=== PATIENT | female | born 1980 | race Caucasian/White ===

== ENCOUNTER 2020-05-27 02:03 | Inpatient (IN) | payer OTHER, SELFPAY ==
[2020-05-27] VITALS (25 sets, daily range): BP systolic 116–138; BP diastolic 79–97; PULSE 91–115; RESP 13–25; TEMP 36.2–36.9; O2SAT 99–100; BMI 27.9
--- NOTE | ~2020-05-27 | XR_ITS ---
EXAMINATION: XR knee LT 2V, XR knee RT 2V DATE: 05/28/2020 12:55 INDICATION: Bilateral knee pain post fall onto knees. TECHNIQUE: 1. Anteroposterior and flexed are stable lateral views of the left knee were obtained. 2. Anteroposterior and flexed are stable lateral views of the right knee were obtained. COMPARISON: None. FINDINGS: Normal alignment at both knees. No fracture. Joint spaces appear normal at both knees. Small right kn ee joint effusion without layering lipohemarthrosis. No left knee joint effusion. Soft tissues are ot herwise unremarkable. IMPRESSION: 1. No osseous abnormality at either knee. 2. Small right knee joint effusion. Reviewed, dictated and finalized at location A. IMPRESSION: 1. No osseous abnormality at either knee. 2. Small right knee joint effusion.
--- NOTE | ~2020-05-27 | US_ITS ---
EXAMINATION: US right upper quadrant EXAM DATE: 05/27/2020 13:50 INDICATION: Abnormal labs. TECHNIQUE: Multiple grayscale and Doppler images of the abdomen right upper quadrant were obtained (b y a technologist who performed the scan) and subsequently reviewed. There is no prior study for sade sevilla. FINDINGS: The pancreatic head and body are normal in appearance. The pancreatic tail is not visualized. There is echogenic liver parenchyma with poor penetration, hepatic steatosis. There are no focal liver le sions identified. There is no evidence of intrahepatic biliary duct dilation. Portal venous flow w as seen in the hepatopedal, normal direction and has normal Doppler waveform. No right-sided hydrone phrosis. Common bile duct measures 5 mm, which is normal. The gallbladder wall is normal in thickness, with ex pected amount of distention. No sonographic evidence of pericholecystic fluid. There is no cholelit hiases. Technologist performing exam reports patient did not demonstrate sonographic Lockett's sign. Please note that this sign is less reliable in patients who have received pain medication. IMPRESSION: 1. Hepatic steatosis. Reviewed, dictated and finalized at location B. IMPRESSION: 1. Hepatic steatosis.
--- NOTE | ~2020-05-27 | CT_ITS ---
EXAMINATION: CT thoracic spine wo con EXAM DATE: 05/27/2020 04:49 INDICATION: Back pain. Hyperbilirubinemia. Transaminitis. Unable to raise arms. TECHNIQUE: Spiral CT thoracic spine wo con was performed without contrast. Axial, coronal and sagit chucho images were reviewed. The dose-length product (DLP) for this examination was 1240.32 mGy-cm. Th e exposure was tailored according to patient size (auto mA exposure control), and iterative reconstru ction (ASIR) was used as additional dose reduction technique. There is no prior study for comparison . FINDINGS: There is no endplate erosive change, no evidence of discitis. There is mild mid thoracic di sc disease. Number than mild thoracic facet arthropathy. Thoracic central canal and neural foramen ap pear widely patent. The vertebral bodies are aligned in the AP dimension. Hepatic steatosis. Paraspin al soft tissue is unremarkable. Mild dependent atelectasis. IMPRESSION: Mild thoracic spondylosis. Reviewed, dictated and finalized at location B. IMPRESSION: Mild thoracic spondylosis.
--- NOTE | ~2020-05-27 | XR_ITS ---
EXAMINATION: XR chest 2V DATE: 05/27/2020 04:52 INDICATION: Transient alteration of awareness. Back pain. TECHNIQUE: frontal and lateral views of the chest were obtained. COMPARISON: Chest radiograph dated 12/17/2006 FINDINGS: The lungs are clear with no focal airspace opacities, pulmonary edema, pleural effusion or pneumothor ax. The cardiomediastinal silhouette is normal. Visualized bones and soft tissues are unremarkable. IMPRESSION: 1. No acute cardiopulmonary disease. Reviewed, dictated and finalized at location A.
--- NOTE | ~2020-05-27 | CT_ITS ---
EXAMINATION: CT BRAIN W/O DATE: 05/27/2020 04:49 INDICATION: Altered mental status TECHNIQUE: Computed tomography (CT) of the head was performed without intravenous contrast. The dose- length product was 605.33 mGy-cm. The mA was adjusted according to patient size. Iterative reconstruc tion technique was employed. COMPARISON: No prior studies for comparison. FINDINGS: Normal brain parenchymal volume for age. Normal [place]-white differentiation. No acute intrac ranial hemorrhage, infarction, mass or mass effect. No ventriculomegaly or midline shift. Midline sagittal images demonstrate a normal corpus callosum, c raniovertebral junction and sella turcica. Basilar cisterns are patent. Minimal mucosal thickening of the right maxillary and sphenoid sinuses. Mastoids are pneumatized. No depressed skull fractures. IMPRESSION: 1. No acute intracranial abnormality. Reviewed, dictated and finalized at location A.
--- NOTE | ~2020-05-27 | US_ITS ---
EXAMINATION: US venous doppler [facility] DATE: 05/30/2020 11:14 INDICATION: Bilateral lower limb pain TECHNIQUE: Grayscale ultrasound images without and with compression and Doppler ultrasound images of the bilateral lower extremity veins were obtained. COMPARISON: None. FINDINGS: The visualized portions of right common femoral vein, profunda (deep) femoral vein, femoral vein, pop liteal vein, posterior tibial veins, peroneal veins, gastrocnemius vein and greater saphenous vein ou tflow are patent. The visualized portions of left common femoral vein, profunda femoral vein, femoral vein, popliteal v ein, posterior tibial veins, peroneal veins, gastrocnemius vein and greater saphenous vein outflow ar e patent. IMPRESSION: 1. No deep venous thrombosis in either lower limb. Reviewed, dictated and finalized at location A.
--- NOTE | ~2020-05-27 | CT_ITS ---
EXAMINATION: CT abd pelvis lumbar w con EXAM DATE: 05/27/2020 04:49 INDICATION: Back pain, hyperbilirubinemia, transaminitis. TECHNIQUE: Spiral CT of the abdomen and pelvis was performed following intravenous injection of 100 m L Omnipaque 350. Axial, coronal and sagittal images were reviewed. Spiral CT of the lumbar spine was performed with contrast. Axial, coronal and sagittal images were reviewed. The dose-length produc t (DLP) for this examination was 1076.93 mGy-cm. The exposure was tailored according to patient size (auto mA exposure control), and iterative reconstruction (ASIR) was used as additional dose reductio n technique. There is no prior study for comparison. FINDINGS: Small well-circumscribed right breast masses, could be fibroadenomas, largest measuring 1.5 cm; consider screening mammogram. There is hepatomegaly. There is hepatic steatosis without suspicio us focal lesion identified. Spleen, adrenal glands, pancreas are unremarkable. Gallbladder is unrema rkable. No biliary obstruction. Portal and splenic veins are patent. Kidneys enhance symmetrically . There is no hydronephrosis. There is IUD which appears to be centrally located within the endome trium, expected position. The bladder is unremarkable. There is no retroperitoneal or pelvic lympha denopathy. The appendix is normal. The stomach and small bowel are unremarkable. There is expected amount of c olonic stool. No free intraperitoneal gas. The heart is normal in size. There are no pericardial or pleural effusions. The lung bases are unremarkable. LUMBAR SPINE: There are no acute fractures identified. The vertebral bodies are aligned in the AP d imension. Vertebral body and disc heights are well-maintained. Mild lumbar levocurvature, could be po sitional. No endplate erosive change. Mild lumbar facet arthropathy. No central canal or neural reymundo inal stenosis. IMPRESSION: 1. No acute abdomen, pelvis or lumbar findings. 2. Hepatomegaly and hepatic steatosis. 3. Small round right breast masses likely benign but mammography is recommended. 4. Mild lumbar facet arthropathy. Reviewed, dictated and finalized at location B. IMPRESSION: 1. No acute abdomen, pelvis or lumbar findings. 2. Hepatomegaly and hepatic steatosis. 3. Small round right breast masses likely benign but mammography is recommende d. 4. Mild lumbar facet arthropathy.
--- NOTE | ~2020-05-27 | MR_ITS ---
EXAMINATION: MR brain/brain stem wo con DATE: 05/28/2020 07:33 INDICATION: Altered mental status. Transient alteration of awareness. TECHNIQUE: Magnetic resonance imaging (MRI) of the brain and brainstem was performed without intraven ous contrast. Sequences included sagittal and axial T1-weighted SE, axial diffusion-weighted FS SE, a xial T2*-weighted GRE, axial T2-weighted FLAIR, and axial T2-weighted FSE. Apparent diffusion coeffic ient (ADC) maps were created. COMPARISON: Head CT dated 05/27/2020 FINDINGS: There are no areas of restricted diffusion to suggest acute infarction. No intracranial hemorrhage or abnormal intracranial mass lesion. There are no intraparenchymal signal abnormalities seen on the ot her pulse sequences. The ventricles are symmetric and normal in size. There are no abnormal extra-axi al fluid collections. Flow voids are seen in the cerebral arteries on the T2-weighted sequences consi stent with their expected patency. Small mucous retention cyst in the right maxillary and right sphen oid sinuses. Visualized orbits and soft tissues are unremarkable. IMPRESSION: 1. Normal brain. Reviewed, dictated and finalized at location A. IMPRESSION: 1. Normal brain.
--- NOTE | ~2020-05-27 | CT_ITS ---
EXAMINATION: CT cervical spine wo con DATE: 05/27/2020 04:49 INDICATION: Neck pain. TECHNIQUE: Computed tomography (CT) of the cervical spine was performed without intravenous contrast. The dose-length product was 290 mGy-cm. Automated exposure control and iterative reconstruction tech nique were employed. COMPARISON: None FINDINGS: No acute fracture, subluxation or dislocation. Remaining of cervical lordosis. Mild cervica l spondylosis. No spinal stenosis. Lung apices are normal. Mild levocurvature of the cervical spine. IMPRESSION: 1. No acute abnormality of the cervical spine. Reviewed, dictated and finalized at location A.
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
[2020-05-27 02:43] LABS: Alveolar/Arterial O2 Gradient 22.2 mmHg; Base Excess ABG 5.4 mEq/l (+/-2.0); Fractional Inspired Oxygen 21 %; HCO3 ABG 26.5 mEq/l (22.0-26.0); Oxygen Content ABG 17.5 %vol (16.0-22.0); Oxygen Saturation ABG 98.1 % (95.0-100.0); Oxyhemoglobin 95.8 % THb (90.0-100.0); PCO2 ABG 28.7 mmHg (35.0-45.0); PO2 ABG 93.2 mmHg (80.0-100.0); PO2 FiO2 Ratio Arterial Blood 4.44 %; Total Hemoglobin 12.9 g/dL (12.0-18.0)
[2020-05-27 02:45] LABS: pH ABG 7.584 (7.350-7.450)
[2020-05-27] MEDS: ONDANSETRON INJ 4 MG/2 ML VIAL IV PUSH (02:45)
[2020-05-27] MEDS: SODIUM CHLORIDE 0.9% IV 1,000 ML 999 ML IV CONT ×2 (02:45→05:32)
[2020-05-27 02:46] LABS: Device ROOM AIR; Modified Allen's Test Pass; Site Drawn RIGHT RADIAL
[2020-05-27 02:50] LABS: Glucose Point of Care 112 (65-105)
[2020-05-27 02:52] LABS: Basophils Absolute Auto 0.1 K/mm3 (0.0-0.1); Basophils Percent Auto 0.6 % (0.2-1.2); Eosinophils Percent Auto 0.1 % (0-4.4); Hematocrit 35.8 % (37.0-47.0); Hemoglobin 12.6 g/dL (12.0-15.0); Immature Granulocyte Absolute 0.09 K/mm3 (0.00-0.031); Immature Granulocyte Percent A 1.1 % (0-0.5); Lymphocytes Percent Auto 14.1 % (18.3-44.2); Mean Corpuscular HGB Conc 35.2 g/dl (32-36); Mean Corpuscular Hemoglobin 41.4 pg (26-34); Mean Corpuscular Volume 117.8 fl (80-100); Mean Platelet Volume 9.6 fl (7.4-10.4); Monocytes Absolute Auto 0.8 K/mm3 (0.1-0.6); Monocytes Percent Auto 8.8 % (2.6-8.5); Neutrophils Absolute Auto 6.4 K/mm3 (1.3-6.7); Neutrophils Percent Auto 75.3 % (45.5-73.1); Nucleated Red Blood Cells Perc 0.5 % (0.0-0.2); Platelet Count Result 176 k/mm3 (150-375); Red Blood Count 3.04 M/mm3 (4.2-5.4); Red Cell Distribution Width 14.1 % (11.5-14.5); White Blood Count 8.5 K/mm3 (4.5-10.0)
--- NOTE | 2020-05-27 03:00 | PC.NURSE ---
Patient unable to use bedpan-refuses catheter. Feels lightheaded when sitting up
--- NOTE | 2020-05-27 03:00 | PC.NURSE ---
0246 bedside BGL 112
[2020-05-27 03:02] LABS: INR 1.2; Prothrombin Time 14.8 Seconds (11.1-14.7)
[2020-05-27 03:03] LABS: Partial Thromboplastin Time 28.2 SECONDS (22.3-36.8)
[2020-05-27 03:05] LABS: Acetaminophen < 10 ug/mL (10-30); Ammonia 42 umol/L (9-30); Ethanol < 10 mg/dL (<10); Salicylate < 1.0 mg/dL (2-20)
[2020-05-27 03:12] LABS: Lactic Acid Reflex 5.4 mmol/L (0.7-2.1)
[2020-05-27 03:13] LABS: Alkaline Phosphatase 289 U/L (38-126); Aspartate Amino Transferase 419 U/L (14-36); Bilirubin,Total 7.2 mg/dL (0.2-1.3); Blood Urea Nitrogen 5 mg/dL (7-17); Calcium 9.3 mg/dL (8.4-10.2); Carbon Dioxide 30 mmol/L (22-30); Chloride 89 mmol/L (98-107); Estimated CRCL calculation 105 ml/min; Estimated Glomerular Filt Rate > 60; Glucose 116 mg/dL (65-105); Potassium 2.6 mmol/L (3.4-5.0); Sodium 133 mmol/L (137-145)
[2020-05-27 03:19] LABS: Troponin I 0.017 ng/mL (0.000-0.034)
--- NOTE | 2020-05-27 03:23 | ECG_ITS ---
Measurements Intervals [place] Rate: 104 P: 31 HI: 130 QRS: 47 QRSD: 90 T: 61 QT: 341 QTc: 450 Interpretive Statements SINUS TACHYCARDIA POSSIBLE LEFT ATRIAL ENLARGEMENT BORDERLINE ST-T WAVE ABNORMALITY- DIFFUSE LEADS BASELINE ARTIFACT- I, III, AVR, AVL ABNORMAL ECG Electronically Signed On 05-27-2020 6:53:08 CDT by Brent Blackburn D.O.
[2020-05-27 03:24] LABS: Alanine Aminotransferase 167 U/L (4-35)
[2020-05-27 03:29] LABS: Lipase 73 U/L (23-300)
[2020-05-27] MEDS: POTASSIUM CHLORIDE 20 MEQ PACKET (FOR LIQUID) 40 MEQ PO ×2 (03:51→17:48)
[2020-05-27 05:51] LABS: Reflex Lactic Acid Yes or No Add Lactic
[2020-05-27 06:32] LABS: Add Urine Microscopic? YES; Appearance Urine Clear (Clear); Bacteria Urine Trace /hpf; Bilirubin Urine 1+ (Negative); Blood Urine Negative (Negative); Color Urine Amber (Yellow); Glucose Urine UA Negative (Negative); Ketones Urine Negative (Negative); Leukocyte Esterase Ur Negative LEU/UL (Negative); Mucus Urine Rare /lpf; Nitrate Urine Negative (Negative); Protein Urine Negative (Negative); RBC Urine 0-2 /hpf (0-2); Squamous Epithelial Cell Urine Rare /hpf (Few); WBC Urine 16-20 /hpf
[2020-05-27 06:35] LABS: Specific Grav Ur 1.036 (1.001-1.035)
[2020-05-27 06:45] LABS: Amphetamine Screen Urine Negative (Negative); Barbiturate Screen Urine Negative (Negative); Benzodiazepines Screen Urine Negative (Negative); Cannabinoid Screen Urine Negative (Negative); Cocaine Screen Urine Negative (Negative); Methadone Screen Urine Negative (Negative); Opiate Screen Urine Positive (Negative); Phencyclidine Screen Urine Negative (Negative)
[2020-05-27 07:18] LABS: Hepatitis B Surface Antigen Negative (Negative)
[2020-05-27 07:24] LABS: HAV RESULT Negative (Negative); Hepatitis B Core IgM Result Negative (Negative)
[2020-05-27 07:36] LABS: Hepatitis C Virus Antibody Negative (Negative)
--- NOTE | 2020-05-27 07:58 | ADMGEN ---
This patient, Laurel Crews, was admitted to IMU Room 231-01. Patient/family oriented to hospital policies and general routines including ID bracelet, bed and alarms, visiting hours, pain management, procedures, bathroom and other care routines, personal items, smoking policy, room service/diet, and visiting hours. Valuables list has been completed. Information on how to activate the Rapid Response Team has been discussed. Patient/Family are encouraged to report perceived risks to care and to ask questions if they do not understand what they are told or what they should do.
[2020-05-27] MEDS: LACTULOSE 20 GM/30 ML UDC PO (12:08)
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
--- NOTE | 2020-05-27 12:20 | PC.NURSE ---
This patient, Laurel Crews, was received from IMU on 05/27/20 at 1220. Personal belongings list checked and signed. Patient/family oriented to unit policies and routines
--- NOTE | 2020-05-27 12:35 | PCDIET ---
This patient, Laurel Crews, was transferred via bed to [facility] on 05/27/20 at 1213. Personal belongings sent with patient. Report given to MARIA A Rosenbaum. Appropriate documentation sent with patient.
[2020-05-27] MEDS: SODIUM CHLORIDE 0.9% IV 1,000 ML 75 ML IV CONT (13:55)
[2020-05-27 14:39] LABS: Potassium 2.8 mmol/L (3.4-5.0)
[2020-05-27 15:01] LABS: Alanine Aminotransferase 133 U/L (4-35); Albumin Level 3.4 g/dL (3.5-5.1); Alkaline Phosphatase 230 U/L (38-126); Aspartate Amino Transferase 316 U/L (14-36); Bilirubin Direct 2.6 mg/dL (0-0.3); Bilirubin,Total 5.9 mg/dL (0.2-1.3)
[2020-05-27] MEDS: LIDOCAINE 5% PATCH 1 PATCH TRANSDERM (15:58)
[2020-05-27 17:14] LABS: Magnesium 1.4 mg/dL (1.6-2.3)
[2020-05-27] MEDS: chlordiazePOXIDE 5 MG CAPSULE PO (17:48)
[2020-05-27 18:35] LABS: Folic Acid 2.7 ng/mL (2.76->20)
[2020-05-27] MEDS: MAGNESIUM OXIDE 200 MG TABLET PO (20:29)
[2020-05-28] VITALS (10 sets, daily range): BP systolic 120–129; BP diastolic 87–93; PULSE 84–113; RESP 18–20; TEMP 35.9–36.3; O2SAT 94–99
[2020-05-28] MEDS: chlordiazePOXIDE 5 MG CAPSULE PO (02:17)
[2020-05-28] MEDS: SODIUM CHLORIDE 0.9% IV 1,000 ML 75 ML IV CONT ×2 (02:43→17:55)
[2020-05-28 05:54] LABS: Hematocrit 31.1 % (37.0-47.0); Hemoglobin 10.7 g/dL (12.0-15.0); Mean Corpuscular HGB Conc 34.4 g/dl (32-36); Mean Corpuscular Hemoglobin 41.6 pg (26-34); Mean Platelet Volume 10.1 fl (7.4-10.4); Platelet Count Result 134 k/mm3 (150-375); Red Blood Count 2.57 M/mm3 (4.2-5.4); Red Cell Distribution Width 14.4 % (11.5-14.5); White Blood Count 5.3 K/mm3 (4.5-10.0)
[2020-05-28 06:06] LABS: Ammonia 43 umol/L (9-30); Magnesium 1.5 mg/dL (1.6-2.3)
[2020-05-28 06:15] LABS: Lactic Acid 4.4 mmol/L (0.7-2.1)
[2020-05-28 06:16] LABS: Alanine Aminotransferase 123 U/L (4-35); Alkaline Phosphatase 212 U/L (38-126); Aspartate Amino Transferase 284 U/L (14-36); Bilirubin,Total 4.6 mg/dL (0.2-1.3); Calcium 8.4 mg/dL (8.4-10.2); Carbon Dioxide 25 mmol/L (22-30); Chloride 104 mmol/L (98-107); Estimated CRCL calculation 147 ml/min; Estimated Glomerular Filt Rate > 60; Glucose 141 mg/dL (65-105); Sodium 138 mmol/L (137-145)
[2020-05-28 06:50] LABS: Blood Urea Nitrogen < 2 mg/dL (7-17)
[2020-05-28] MEDS: LACTULOSE 20 GM/30 ML UDC PO (08:52)
[2020-05-28] MEDS: POTASSIUM CHLORIDE 20 MEQ PACKET (FOR LIQUID) 40 MEQ PO ×2 (08:53→16:14)
[2020-05-28] MEDS: MULTIVITAMINS THERAPEUTIC TAB (*BKC) 1 TABLET PO (08:53)
[2020-05-28] MEDS: THIAMINE HCL 100 MG TABLET PO (08:53)
[2020-05-28] MEDS: MAGNESIUM OXIDE 200 MG TABLET PO ×2 (08:53→20:44)
[2020-05-28] MEDS: LIDOCAINE 5% PATCH 1 PATCH TRANSDERM (09:57)
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
--- NOTE | 2020-05-28 13:51 | WPDNEURCNPN ---
Assessment and Plan Assessment and plan (1) AMS (altered mental status): Code(s): R41.82 - Altered mental status, unspecified Status: Acute (2) Acute hypokalemia: Code(s): E87.6 - Hypokalemia Status: Acute (3) Transaminitis: Code(s): R74.0 - Nonspecific elevation of levels of transaminase and lactic acid dehydrogenase [LDH] Status: Acute (4) Acidosis, lactic: Code(s): E87.2 - Acidosis Status: Acute (5) Breast mass: Code(s): N63.0 - Unspecified lump in unspecified breast Status: Acute (6) Anxiety: Code(s): F41.9 - Anxiety disorder, unspecified Status: Acute (7) Alcoholism: Code(s): F10.20 - Alcohol dependence, uncomplicated Status: Acute Additional Plan I discussed with her in front of the stepdad that all her issues are related [place] directly to her chronic drinking which she accepts and she should seek help for his for her chronic drinking problem for completeness sake I will order the brain MRI to make sure that this young woman did not suffer from a stroke because of the chronic alcoholism Consult date: 05/28/20 Time Seen: 13:00 HPI: Laurel Crews is a 39 year old female who is right-handed was admitted because of change in mental status and details are available in the initial history performed by the attending physician when she was stopped by the police because she was not driving well and she was followed to home and then was admitted she is a chronic drinker in she admits it she does not recall much of the events since then at the time of this examination is she denies any headache nausea vomiting chest pain shortness of breath she suffers from chronic back pain also and has a 16-year-old son living with her. Review of Systems Review of Systems: All systems reviewed & are unremarkable except as noted in HPI and below PMFSH Past Medical History Medical History Anxiety Seizure Family History Family History Mother Depression Family history of coronary artery disease Hypertension Grandparent Family history of malignant neoplasm of breast Carcinoma of colon Father Acute myocardial infarction Hypertension Cerebrovascular accident Social History Social History Smoking packs per day: 0.5 Smoking cigarettes per day: 10.0 Years smoked: 23 Smoking pack-years: 11.50 Smoking status: Current every day smoker Tobacco type: cigarettes Alcohol intake: current Drinks per week: 14 Substance use: never Substance use type: does not use Gender identity (if verbalized by the patient): Female Spiritual care concerns: No Meds Home Medications and Allergies Home Medications Medication Instructions Recorded Confirmed Type No Home Medications 05/27/20 05/27/20 History Allergies Allergy/AdvReac Type Severity Reaction Status Date / Time bacitracin Allergy Unknown Unknown Verified 05/27/20 08:02 benzalkonium chloride Allergy Unknown Unknown Verified 05/27/20 08:02 gramicidin D Allergy Unknown Unknown Verified 05/27/20 08:02 hydrocortisone Allergy Unknown Unknown Verified 05/27/20 08:02 polymyxin B Allergy Unknown Unknown Verified 05/27/20 08:02 BACITRACIN ZINC Allergy Unknown Unknown Uncoded 05/27/20 08:02 NEOMYCIN SULFATE Allergy Unknown Unknown Uncoded 05/27/20 08:02 POLYMYXIN B SULFATE Allergy Unknown Unknown Uncoded 05/27/20 08:02 Vital Signs Vital Signs - 24 hr 05/27/20 14:40 05/27/20 16:00 05/27/20 20:00 Temperature 36.6 C Pulse Rate 100 96 106 H Respiratory Rate 18 Blood Pressure 116/86 Pulse Oximetry 100 05/27/20 21:36 05/28/20 00:00 05/28/20 04:00 Temperature 36.2 C L Pulse Rate 92 106 H 105 H Respiratory Rate 18 Blood Pressure 138/90 Pulse Oximetry 100 05/28/20 06:00 05/28/20 08:00 05/28/20 1
[2020-05-28] MEDS: IBUPROFEN 600 MG TABLET PO (16:13)
[2020-05-29] VITALS (9 sets, daily range): BP systolic 130–141; BP diastolic 85–96; PULSE 80–100; RESP 18–20; TEMP 36.1–36.5; O2SAT 98
[2020-05-29] MEDS: IBUPROFEN 600 MG TABLET PO ×3 (00:31→20:04)
[2020-05-29] MEDS: chlordiazePOXIDE 5 MG CAPSULE PO (05:40)
[2020-05-29] MEDS: SODIUM CHLORIDE 0.9% IV 1,000 ML 75 ML IV CONT ×2 (05:40→19:10)
[2020-05-29] MEDS: MAGNESIUM OXIDE 200 MG TABLET PO (08:37)
[2020-05-29] MEDS: THIAMINE HCL 100 MG TABLET PO (08:37)
[2020-05-29] MEDS: LIDOCAINE 5% PATCH 1 PATCH TRANSDERM (08:37)
[2020-05-29] MEDS: MULTIVITAMINS THERAPEUTIC TAB (*BKC) 1 TABLET PO (08:37)
[2020-05-29] MEDS: POTASSIUM CHLORIDE 20 MEQ PACKET (FOR LIQUID) 40 MEQ PO ×2 (08:37→17:09)
[2020-05-29] MEDS: LACTULOSE 20 GM/30 ML UDC PO (08:37)
[2020-05-29 09:19] LABS: Lactic Acid 2.7 mmol/L (0.7-2.1); Magnesium 1.6 mg/dL (1.6-2.3)
[2020-05-29 09:20] LABS: Calcium 8.2 mg/dL (8.4-10.2); Carbon Dioxide 23 mmol/L (22-30); Chloride 106 mmol/L (98-107); Estimated CRCL calculation 187 ml/min; Estimated Glomerular Filt Rate > 60; Glucose 98 mg/dL (65-105); Potassium 3.2 mmol/L (3.4-5.0); Sodium 139 mmol/L (137-145)
[2020-05-29 09:27] LABS: Blood Urea Nitrogen < 2 mg/dL (7-17)
--- NOTE | 2020-05-29 13:40 | PM.IMPN ---
Progress Note: A&P Assessment and Plan (1) Acute hypokalemia: Code(s): E87.6 - Hypokalemia Status: Acute Assessment and Plan: DC telemtry (2) Transaminitis: Code(s): R74.0 - Nonspecific elevation of levels of transaminase and lactic acid dehydrogenase [LDH] Status: Acute Assessment and Plan: lfts are up UDS negative apart from opiates salicylates negative tylenol levels nl, hepatitis panel nl pt states she drinks alcholol will order ciwa protocol order librium prn MV and thiamine replacement IM , b12 mg potassium supplementation (3) Acidosis, lactic: Code(s): E87.2 - Acidosis Status: Acute Assessment and Plan: iv hydration continue to monitor lactate level ? metabolic acidosis ? lactic acidosis unlikley to be sepsis but will order bc (4) Anxiety: Code(s): F41.9 - Anxiety disorder, unspecified Status: Acute Assessment and Plan: underlying insomina and anxiety (5) AMS (altered mental status): Code(s): R41.82 - Altered mental status, unspecified Status: Acute Assessment and Plan: Transient episode of AMS ? Seizure alcholol relate, ? Stress induced, ? tylenol OD ? hypokalaemia chronic alcholism unsure of her diet Pt seen by neurology Pt AMS improved still weak on her legs PT/ OT vitamin replacement B12 and TSh are nl Ct scan of brain and cspine are negative Awaiting MRI full report Subjective Date/time seen: 05/29/20 13:40 Interval history: 39 year old female vague history, pt was driving to work and stopped at the side and feel asleep. Pt states she feels tired and dizzy. Pt states she has no medical problems, states she has been sleep derived for months and very stressed. States she drinks two glasses of wine a day. states she has not been eating much. Potassium very low on admission. ? AMS secondary to alcholol. Mild weakness in her legs ? secondary to hypokalamia and chronic alcholism Today still having some weakness in legs states her legs feel numb. pt had a fall fell on her knees grazed her knee caps xray were taken which showed small knee effusion Review of Systems Review of Systems: All systems reviewed & are unremarkable except as noted in HPI and below Exam Const: General: tired appearing Nutritional Appearance: well nourished Chest: Chest palpation & inspection: normal inspection of the chest Resp: Effort & Inspection: normal respiratory effort Auscultation: clear to auscultation bilaterally Cardio: Jugular venous distension: no JVD Rhythm: regular rhythm Heart sounds: S1 normal heart sound present and S2 normal heart sound present GI: Inspection: normal to inspection Auscultation: normal bowel sounds Back/Spine/Pelvis: Back: no CVA tenderness Skin: General skin exam: normal color and dry skin Neuro: General: confusion Cranial nerves: Yes CN's II-XII intact bilaterally and Yes Equal, round and reactive pupils present Cognition (Neuro): normal cognition Speech: normal speech Motor exam (neuro): strength not 5/5 throughout (5/5 in upper limbs, lower limbs 4/5 weakness proximally legs ) and Other motor observations present (small grazes on both knees not hot or tender not swollen ) Extrem: General: normal to inspection Psych: Appearance: grossly normal Mental Status: mental status grossly normal Objective Data Vital Signs Vital Signs: Vital Signs - 24 hr 05/28/20 14:00 05/28/20 16:00 05/28/20 20:00 Temperature 36.3 C L Pulse Rate 84 101 H 103 H Respiratory Rate 18 Blood Pressure 129/87 Pulse Oximetry 98 05/28/20 22:00 05/29/20 00:00 05/29/20 04:00 Temperature 36.3 C L Pulse Rate 91 85 88 Respiratory Rate 20 Blood Pressure 122/87 Pulse Oximetry 99 05/29/20 06:00 Temperature 36.1 C L Pulse Rate 80 Respiratory Rate 20 Blood Pressure 139/85 Pulse Oximetry 98 Intake/Output Intake/Output: Intake & Output 05/26/20 05/27/20
[2020-05-29] MEDS: MAGNESIUM OXIDE 400 MG TABLET PO (20:15)
[2020-05-29] MEDS: MAGNESIUM HYDROXIDE SUSP 30 ML UDC PO (23:12)
[2020-05-30] VITALS (7 sets, daily range): BP systolic 131–135; BP diastolic 87–95; PULSE 74–96; RESP 12–18; TEMP 36.3–36.9; O2SAT 98–99
[2020-05-30] MEDS: SIMETHICONE 80 MG TAB.CHEW PO (06:28)
[2020-05-30 08:11] LABS: Calcium 7.9 mg/dL (8.4-10.2); Carbon Dioxide 25 mmol/L (22-30); Chloride 103 mmol/L (98-107); Estimated CRCL calculation 187 ml/min; Estimated Glomerular Filt Rate > 60; Glucose 122 mg/dL (65-105); Potassium 3.1 mmol/L (3.4-5.0); Sodium 136 mmol/L (137-145)
[2020-05-30] MEDS: SODIUM CHLORIDE 0.9% IV 1,000 ML 75 ML IV CONT (08:45)
[2020-05-30] MEDS: LACTULOSE 20 GM/30 ML UDC PO (08:48)
[2020-05-30] MEDS: MAGNESIUM OXIDE 400 MG TABLET PO ×3 (08:49→20:00)
[2020-05-30] MEDS: CYANOCOBALAMIN 500 MCG TABLET PO (08:49)
[2020-05-30] MEDS: MULTIVITAMINS THERAPEUTIC TAB (*BKC) 1 TABLET PO (08:49)
[2020-05-30] MEDS: POTASSIUM CHLORIDE 20 MEQ PACKET (FOR LIQUID) 40 MEQ PO ×2 (08:49→17:11)
[2020-05-30] MEDS: THIAMINE HCL 200 MG/2 ML VIAL 100 MG IM (08:49)
[2020-05-30] MEDS: LIDOCAINE 5% PATCH 1 PATCH TRANSDERM (08:50)
[2020-05-30 09:44] LABS: Blood Urea Nitrogen < 2 mg/dL (7-17)
--- NOTE | 2020-05-30 10:58 | PCPTNOTE ---
The patient treatment was not able to be completed on 05/30/20 due to going down for an ultrasound. Will plan to continue treatment per plan of care.
--- NOTE | 2020-05-30 12:00 | PM.IMPN ---
Progress Note: A&P Assessment and Plan (1) Acute hypokalemia: Code(s): E87.6 - Hypokalemia Status: Acute Assessment and Plan: DC telemtry , pt is on potassium supplements. K is 3.1 today (2) Transaminitis: Code(s): R74.0 - Nonspecific elevation of levels of transaminase and lactic acid dehydrogenase [LDH] Status: Acute Assessment and Plan: lfts are up UDS negative apart from opiates salicylates negative tylenol levels nl, hepatitis panel nl pt states she drinks alcholol Lfts likely secondary to chronic alcholism will order ciwa protocol order librium prn MV and thiamine replacement IM , b12 mg potassium supplementation (3) Acidosis, lactic: Code(s): E87.2 - Acidosis Status: Acute Assessment and Plan: iv hydration continue to monitor lactate level ? metabolic acidosis ? lactic acidosis (4) Anxiety: Code(s): F41.9 - Anxiety disorder, unspecified Status: Acute Assessment and Plan: underlying insomina and anxiety (5) AMS (altered mental status): Code(s): R41.82 - Altered mental status, unspecified Status: Acute Assessment and Plan: Transient episode of AMS ? Seizure alcholol relate, ? hypokalaemia chronic alcholism unsure of her diet Pt seen by neurology Pt AMS improved still weak on her legs PT/ OT vitamin replacement B12 and TSh are nl Ct scan of brain and cspine are negative MRI is negative Neurology to decide if EEG is necessary for patient continue PT/OT pt may benefit from rehab placement for weakness in her legs Subjective Date/time seen: 05/30/20 12:00 Interval history: 39 year old female vague history, pt was driving to work and stopped at the side and feel asleep. Pt states she feels tired and dizzy. Pt states she has no medical problems, states she has been sleep derived for months and very stressed. States she drinks two glasses of wine a day. states she has not been eating much. Potassium very low on admission. ? AMS secondary to alcholol. Mild weakness in her legs ? secondary to hypokalamia and chronic alcholism Today still having some weakness in legs states her legs feel numb. pt had a fall fell on her knees grazed her knee caps xray were taken which showed small knee effusion Review of Systems Neurologic: Reports other (Confusion mild ) Comments: Generalised weakness, parathesia of legs Exam Const: General: tired appearing HENMT: Head: normocephalic Eyes: General: appearance normal, both eyes and all related structures Pupils: Equal, round and reactive pupils present Neck: Neck: supple Chest: Chest palpation & inspection: normal inspection of the chest Resp: Effort & Inspection: normal respiratory effort Auscultation: clear to auscultation bilaterally Cardio: Jugular venous distension: no JVD Rhythm: regular rhythm Heart sounds: S1 normal heart sound present and S2 normal heart sound present GI: Inspection: normal to inspection Auscultation: normal bowel sounds : General: Yes no CVA tenderness Skin: General skin exam: normal color and dry skin Neuro: General: confusion Cranial nerves: Yes CN's II-XII intact bilaterally and Yes Equal, round and reactive pupils present Cognition (Neuro): normal cognition Speech: normal speech Motor exam (neuro): strength not 5/5 throughout (5/5 in upper limbs, lower limbs 4/5 weakness proximally legs ) and Other motor observations present (small grazes on both knees not hot or tender not swollen ) Extrem: General: normal to inspection Psych: Appearance: grossly normal Mental Status: other (Confused at times ) Objective Data Vital Signs Vital Signs: Vital Signs - 24 hr 05/29/20 14:00 05/29/20 16:00 05/29/20 20:00 Temperature 36.5 C Pulse Rate 90 96 96 Respiratory Rate 18 Blood Pressure 130/96 H Pulse Oximetry 98 05/29/20 21:36 05/30/20 00:00 05/30/20 04:00 Temperature 36.5 C Pulse Rate 100 93 7
--- NOTE | 2020-05-30 14:06 | PCOTNOTE ---
Patient declined need for toileting and ADL's this date.
[2020-05-30 14:24] LABS: Calcium 8.2 mg/dL (8.4-10.2); Carbon Dioxide 26 mmol/L (22-30); Chloride 105 mmol/L (98-107); Estimated CRCL calculation 187 ml/min; Estimated Glomerular Filt Rate > 60; Glucose 128 mg/dL (65-105); Potassium 3.7 mmol/L (3.4-5.0); Sodium 138 mmol/L (137-145)
[2020-05-30 14:39] LABS: Blood Urea Nitrogen < 2 mg/dL (7-17)
[2020-05-30] MEDS: IBUPROFEN 600 MG TABLET PO ×2 (14:59→20:29)
[2020-05-30] MEDS: CYANOCOBALAMIN INJ 1,000 MCG/ML VIAL 1000 MCG IM (15:49)
[2020-05-31] VITALS: BP 131/87
[2020-05-31] MEDS: SODIUM CHLORIDE 0.9% IV 1,000 ML 75 ML IV CONT ×3 (01:01→22:06)
[2020-05-31] MEDS: IBUPROFEN 600 MG TABLET PO ×4 (01:01→20:20)
[2020-05-31 04:00] VITALS: BP 131/87
[2020-05-31 06:00] VITALS: BP 114/75; PULSE 107; RESP 16; TEMP 37.4; O2SAT 99
[2020-05-31] MEDS: LACTULOSE 20 GM/30 ML UDC PO (08:09)
[2020-05-31] MEDS: MULTIVITAMINS THERAPEUTIC TAB (*BKC) 1 TABLET PO (08:09)
[2020-05-31] MEDS: CYANOCOBALAMIN 500 MCG TABLET PO (08:09)
[2020-05-31] MEDS: LIDOCAINE 5% PATCH 1 PATCH TRANSDERM (08:10)
[2020-05-31] MEDS: POTASSIUM CHLORIDE 20 MEQ PACKET (FOR LIQUID) 40 MEQ PO ×2 (08:10→16:50)
--- NOTE | 2020-05-31 08:30 | PCOTNOTE ---
Attempted to see patient for skilled OT, however, patient declined to participate in any ADL task or functional mobility, as well as UB exercises. Patient not seen for OT this date. Will continue plan of care tomorrow, 06/01/2020.
[2020-05-31 09:17] LABS: Alanine Aminotransferase 85 U/L (4-35); Albumin Level 3.2 g/dL (3.5-5.1); Alkaline Phosphatase 260 U/L (38-126); Aspartate Amino Transferase 118 U/L (14-36); Bilirubin,Total 4.4 mg/dL (0.2-1.3); Calcium 8.5 mg/dL (8.4-10.2); Carbon Dioxide 21 mmol/L (22-30); Chloride 107 mmol/L (98-107); Estimated CRCL calculation 187 ml/min; Estimated Glomerular Filt Rate > 60; Glucose 158 mg/dL (65-105); Potassium 4.7 mmol/L (3.4-5.0); Sodium 135 mmol/L (137-145)
[2020-05-31 09:20] LABS: Blood Urea Nitrogen < 2 mg/dL (7-17)
--- NOTE | 2020-05-31 10:30 | NEURO_ITS ---
TEST: ELECTROENCEPHALOGRAM DIAGNOSIS: CONFUSION; WEAKNESS; POSSIBLE SEIZURE PATIENT NUMBER: [id number] EEG NUMBER: [id number] RECORDING DATE: 05/31/20 CONDITION OF RECORDING: Awake, drowsy and sleep EEG DESCRIPTION: The whole record consists of diffused low voltage 15-21beta activity mixed with intermittent low voltage 11-13hz alpha posteriorly during brief periods of wakefulness. Bilateral symmetrical sleep activity is seen during sleep. Hyperventilation and photic stimulation were not done. Nonparoxysmal. Nonfocal. Nonlateralizing. IMPRESSION: No significant abnormalities noted. MTDD
[2020-05-31] MEDS: THIAMINE HCL 100 MG TABLET PO (11:21)
[2020-05-31 14:00] VITALS: BP 122/88; PULSE 104; RESP 16; TEMP 37.1; O2SAT 100
[2020-05-31 14:13] LABS: Blood Urea Nitrogen 2 mg/dL (7-17); Calcium 8.7 mg/dL (8.4-10.2); Carbon Dioxide 23 mmol/L (22-30); Chloride 109 mmol/L (98-107); Estimated CRCL calculation 147 ml/min; Estimated Glomerular Filt Rate > 60; Glucose 108 mg/dL (65-105); Potassium 4.1 mmol/L (3.4-5.0); Sodium 139 mmol/L (137-145)
--- NOTE | 2020-05-31 14:27 | PM.IMPN ---
Progress Note: A&P Assessment and Plan (1) Acute hypokalemia: Code(s): E87.6 - Hypokalemia Status: Acute Assessment and Plan: DC telemtry , pt is on potassium supplements. K is 3.1 today (2) Transaminitis: Code(s): R74.0 - Nonspecific elevation of levels of transaminase and lactic acid dehydrogenase [LDH] Status: Acute Assessment and Plan: lfts are up UDS negative apart from opiates salicylates negative tylenol levels nl, hepatitis panel nl pt states she drinks alcholol Lfts likely secondary to chronic alcholism will order ciwa protocol order librium prn MV and thiamine replacement IM , b12 mg potassium supplementation 39 year old female vague history, pt was driving to work and stopped at the side and feel asleep. Pt states she feels tired and dizzy. Pt states she has no medical problems, states she has been sleep derived for months and very stressed. States she drinks two glasses of wine a day. states she has not been eating much. Potassium very low on admission. ? AMS secondary to alcholol. Mild weakness in her legs ? secondary to hypokalamia and chronic alcholism Today still having some weakness in legs states her legs feel numb. pt had a fall fell on her knees grazed her knee caps xray were taken which showed small knee effusion, patient stats she did work with PT/OT today, and it helps, patient will benefit going to acute rehab, Patient was seen by neurologist and MRI of brain was ordered which was normal, to further evaluate weakness in her lower extremities will do EMG of lower extremities, also paitent vitamin B12 is normal however her folic acid is low will supplement. (3) Acidosis, lactic: Code(s): E87.2 - Acidosis Status: Acute Assessment and Plan: iv hydration continue to monitor lactate level ? metabolic acidosis ? lactic acidosis (4) Anxiety: Code(s): F41.9 - Anxiety disorder, unspecified Status: Acute Assessment and Plan: underlying insomina and anxiety (5) AMS (altered mental status): Code(s): R41.82 - Altered mental status, unspecified Status: Acute Assessment and Plan: Transient episode of AMS ? Seizure alcholol relate, ? hypokalaemia chronic alcholism unsure of her diet Pt seen by neurology Pt AMS improved still weak on her legs PT/ OT vitamin replacement B12 and TSh are nl Ct scan of brain and cspine are negative MRI is negative Neurology to decide if EEG is necessary for patient continue PT/OT pt may benefit from rehab placement for weakness in her legs Subjective Date/time seen: 05/31/20 14:27 Interval history: 39 year old female vague history, pt was driving to work and stopped at the side and feel asleep. Pt states she feels tired and dizzy. Pt states she has no medical problems, states she has been sleep derived for months and very stressed. States she drinks two glasses of wine a day. states she has not been eating much. Potassium very low on admission. ? AMS secondary to alcholol. Mild weakness in her legs ? secondary to hypokalamia and chronic alcholism Today still having some weakness in legs states her legs feel numb. pt had a fall fell on her knees grazed her knee caps xray were taken which showed small knee effusion, patient stats she did work with PT/OT today, and it helps, patient will benefit going to acute rehab, Patient was seen by neurologist and MRI of brain was ordered which was normal, to further evaluate weakness in her lower extremities will do EMG of lower extremities, also paitent vitamin B12 is normal however her folic acid is low will supplement. Review of Systems Review of Systems: All systems reviewed & are unremarkable except as noted in HPI and below Exam Const: General: comfortable and no acute distress HENMT: General nose exam: Normal nares present Mouth: Yes moist mucous membranes Eyes: General: appearance normal, both eyes and all related str
[2020-05-31] MEDS: FOLIC ACID 1 MG TABLET PO (16:51)
[2020-05-31] MEDS: GABAPENTIN 100 MG CAPSULE PO (16:51)
--- NOTE | 2020-05-31 16:53 | WPDNEUROPN ---
Progress Note: A&P Assessment and Plan (1) Alcoholism: Code(s): F10.20 - Alcohol dependence, uncomplicated Status: Acute (2) AMS (altered mental status): Code(s): R41.82 - Altered mental status, unspecified Status: Acute (3) Acute hypokalemia: Code(s): E87.6 - Hypokalemia Status: Acute (4) Transaminitis: Code(s): R74.0 - Nonspecific elevation of levels of transaminase and lactic acid dehydrogenase [LDH] Status: Acute (5) Acidosis, lactic: Code(s): E87.2 - Acidosis Status: Acute (6) Breast mass: Code(s): N63.0 - Unspecified lump in unspecified breast Status: Acute (7) Anxiety: Code(s): F41.9 - Anxiety disorder, unspecified Status: Acute Additional Plan lower extremities dysesthesia Review of Systems Review of Systems: All systems reviewed & are unremarkable except as noted in HPI and below Exam Const: General: cooperative, comfortable and no acute distress Nutritional Appearance: average body habitus Limitations: no limitations HENMT: Head: normal to inspection Eyes: General: appearance normal, both eyes and all related structures Neck: Neck: full ROM and no lymphadenopathy Resp: Effort & Inspection: able to speak in complete sentences Auscultation: clear to auscultation bilaterally Cardio: Rate: regular rate Rhythm: regular rhythm GI: Auscultation: normal bowel sounds Skin: General skin exam: no rashes or lesions noted Neuro: General: patient oriented x3, moves all extremities and no focal motor deficits Cranial nerves: Yes CN's II-XII intact bilaterally, Yes Equal, round and reactive pupils present, Yes Bilaterally intact EOM present, Yes Nystagmus not present, Yes Ability to bilaterally rotate head present and Yes Ability to bilaterally elevate shoulders present Cognition (Neuro): normal cognition Speech: normal speech Gait exam (Neuro): Other gait observations present Motor exam (neuro): 5/5 motor strength present throughout Sensory Exam: Abnormal lower extremity sensory exam (pain and discomfort) Deep tendon reflexes (DTR's): Right triceps reflex intensity grade: 1+, Left triceps reflex intensity grade: 1+, Rt Biceps (C5, C6): 1+, Left biceps reflex intensity grade: 1+, Right brachioradialis reflex intensity grade: 1+, Left brachioradialis reflex intensity grade: 1+, Right patellar reflex intensity grade: 1+, Left patellar reflex intensity grade: 1+, Right ankle reflex intensity grade: 1+ and Left ankle reflex intensity grade: 1+ Plantar Reflex Responses: downgoing: bilateral Psych: Appearance: grossly normal Affect: normal affect Attitude: cooperative Thought process: Normal thought process present Thought content: Yes Normal thought content present Insight: Fair insight present (Psych) Judgement: Fair judgement present (Psych) Objective Data Vital Signs Vital Signs: Vital Signs - 24 hr 05/30/20 20:00 05/30/20 20:58 05/31/20 00:00 Temperature 36.9 C Pulse Rate 95 Respiratory Rate 12 Blood Pressure 131/87 131/87 131/87 Pulse Oximetry 99 05/31/20 04:00 05/31/20 06:00 05/31/20 14:00 Temperature 37.4 C 37.1 C Pulse Rate 107 H 104 H Respiratory Rate 16 16 Blood Pressure 131/87 114/75 122/88 Pulse Oximetry 99 100 Intake/Output Intake/Output: Intake & Output 05/28/20 05/29/20 05/30/20 05/31/20 23:59 23:59 23:59 23:59 Intake Total 3180 3320 2867 1813 Output Total 1450 1600 2500 120 Balance 1730 8206 095 8910 Meds/Results Medications: Active Medications Generic Name Dose Route Start Last Admin Trade Name Freq PRN Reason Stop Dose Admin Chlordiazepoxide HCl 5 mg 05/27/20 16:21 05/29/20 05:40 Librium Po PO 5 mg Q8H PRN Administration Anxiety Cyanocobalamin 500 mcg 05/30/20 09:00 05/31/20 08:09 Vitamin B-12 Tab PO 500 mcg QAM SERAFIN Administration Folic Acid 1 mg 05/31/20 14:25 05/31/20 16:51 Folic Acid PO 1 mg DAILY [facility] Administr
[2020-05-31] MEDS: MAGNESIUM OXIDE 400 MG TABLET PO (20:20)
[2020-05-31 22:00] VITALS: BP 124/89; PULSE 105; RESP 21; TEMP 36.5; O2SAT 100
[2020-06-01] MEDS: IBUPROFEN 600 MG TABLET PO ×2 (05:54→21:36)
[2020-06-01 06:00] VITALS: BP 106/64; PULSE 116; RESP 20; TEMP 36.5; O2SAT 99
[2020-06-01 06:11] LABS: Alanine Aminotransferase 69 U/L (4-35); Alkaline Phosphatase 228 U/L (38-126); Aspartate Amino Transferase 99 U/L (14-36); Blood Urea Nitrogen 2 mg/dL (7-17); Calcium 8.9 mg/dL (8.4-10.2); Carbon Dioxide 20 mmol/L (22-30); Chloride 110 mmol/L (98-107); Estimated CRCL calculation 147 ml/min; Estimated Glomerular Filt Rate > 60; Glucose 97 mg/dL (65-105); Potassium 4.5 mmol/L (3.4-5.0); Sodium 135 mmol/L (137-145)
[2020-06-01] MEDS: LIDOCAINE 5% PATCH 1 PATCH TRANSDERM (08:06)
[2020-06-01] MEDS: MAGNESIUM OXIDE 400 MG TABLET PO ×2 (08:07→21:36)
[2020-06-01] MEDS: THIAMINE HCL 100 MG TABLET PO (08:07)
[2020-06-01] MEDS: LACTULOSE 20 GM/30 ML UDC PO (08:07)
[2020-06-01] MEDS: MULTIVITAMINS THERAPEUTIC TAB (*BKC) 1 TABLET PO (08:07)
[2020-06-01] MEDS: FOLIC ACID 1 MG TABLET PO (08:07)
[2020-06-01] MEDS: POTASSIUM CHLORIDE 20 MEQ PACKET (FOR LIQUID) 40 MEQ PO ×2 (08:07→17:06)
[2020-06-01] MEDS: CYANOCOBALAMIN 500 MCG TABLET PO (08:07)
[2020-06-01] MEDS: GABAPENTIN 100 MG CAPSULE 200 MG PO ×2 (08:07→17:06)
[2020-06-01] MEDS: SODIUM CHLORIDE 0.9% IV 1,000 ML 75 ML IV CONT ×2 (08:08→21:38)
[2020-06-01 08:22] LABS: Hematocrit 35.5 % (37.0-47.0); Hemoglobin 11.4 g/dL (12.0-15.0); Mean Corpuscular HGB Conc 32.1 g/dl (32-36); Mean Corpuscular Hemoglobin 41.3 pg (26-34); Mean Corpuscular Volume 128.6 fl (80-100); Mean Platelet Volume 11.5 fl (7.4-10.4); Platelet Count Result 155 k/mm3 (150-375); Red Blood Count 2.76 M/mm3 (4.2-5.4); Red Cell Distribution Width 15.9 % (11.5-14.5); White Blood Count 13.3 K/mm3 (4.5-10.0)
--- NOTE | 2020-06-01 11:13 | WPDNEURCNPN ---
Assessment and Plan Assessment and plan (1) Alcoholism: Code(s): F10.20 - Alcohol dependence, uncomplicated Status: Acute (2) AMS (altered mental status): Code(s): R41.82 - Altered mental status, unspecified Status: Acute (3) Acute hypokalemia: Code(s): E87.6 - Hypokalemia Status: Acute (4) Transaminitis: Code(s): R74.0 - Nonspecific elevation of levels of transaminase and lactic acid dehydrogenase [LDH] Status: Acute (5) Acidosis, lactic: Code(s): E87.2 - Acidosis Status: Acute (6) Breast mass: Code(s): N63.0 - Unspecified lump in unspecified breast Status: Acute (7) Anxiety: Code(s): F41.9 - Anxiety disorder, unspecified Status: Acute Consult date: 06/24/20 Time Seen: 10:30 HPI: Laurel Crews is a 39 year old femalewith chronic alcoholism and neuropathic [place]omfort PMFSH Past Medical History Medical History Anxiety Seizure Family History Family History Mother Depression Family history of coronary artery disease Hypertension Grandparent Family history of malignant neoplasm of breast Carcinoma of colon Father Acute myocardial infarction Hypertension Cerebrovascular accident Social History Social History Smoking packs per day: 0.5 Smoking cigarettes per day: 10.0 Years smoked: 23 Smoking pack-years: 11.50 Smoking status: Current every day smoker Tobacco type: cigarettes Alcohol intake: current Drinks per week: 14 Substance use: never Substance use type: does not use Gender identity (if verbalized by the patient): Female Spiritual care concerns: No Meds Home Medications and Allergies Home Medications Medication Instructions Recorded Confirmed Type ibuprofen 600 mg PO TID PRN #20 tablet 06/02/20 Rx lactulose 20 g PO QAM #1000 ml 06/02/20 Rx lidocaine [Lidoderm] 1 patch TRANSDERMAL DAILY #10 ea 06/02/20 Rx magnesium oxide 400 mg PO Q12HR #30 tablet 06/02/20 Rx multivitamin with folic acid 1 tablet PO QAM #90 tablet 06/02/20 Rx [Thera] tramadol 25 mg PO Q6H PRN #15 tablet 06/02/20 Rx escitalopram oxalate 10 mg tablet 10 mg PO DAILY #30 tablet 06/14/20 06/14/20 Rx gabapentin 300 mg capsule 300 mg PO TID #90 cap 06/14/20 06/14/20 Rx Allergies Allergy/AdvReac Type Severity Reaction Status Date / Time bacitracin Allergy Unknown Unknown Verified 06/14/20 15:22 benzalkonium chloride Allergy Unknown Unknown Verified 06/14/20 15:22 gramicidin D Allergy Unknown Unknown Verified 06/14/20 15:22 hydrocortisone Allergy Unknown Unknown Verified 06/14/20 15:22 polymyxin B Allergy Unknown Unknown Verified 06/14/20 15:22 BACITRACIN ZINC Allergy Unknown Unknown Uncoded 05/27/20 08:02 NEOMYCIN SULFATE Allergy Unknown Unknown Uncoded 05/27/20 08:02 POLYMYXIN B SULFATE Allergy Unknown Unknown Uncoded 05/27/20 08:02 Vital Signs Vital Signs - 24 hr 05/31/20 14:00 05/31/20 22:00 06/01/20 06:00 Temperature 37.1 C 36.5 C 36.5 C Pulse Rate 104 H 105 H 116 H Respiratory Rate 16 21 H 20 Blood Pressure 122/88 124/89 106/64 Pulse Oximetry 100 100 99 Exam Const: General: cooperative, healthy appearing, well developed, alert, awake, anxious and uncomfortable Nutritional Appearance: average body habitus Orientation/consciousness: oriented to person, oriented to place, oriented to time and patient oriented x3 Limitations: no limitations HENMT: Head: normal to inspection Ears: hearing grossly normal bilaterally General nose exam: Normal external nose present and No nasal discharge present Eyes: General: appearance normal, both eyes and all related structures Visual Jacob: normal visual jacob by confrontation Alignment and Position: alignment normal Periorbital: periorbital findings normal Eyelids: eyelids normal Con
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
[2020-06-01 14:00] VITALS: BP 123/82; PULSE 101; RESP 18; TEMP 36.1; O2SAT 100
--- NOTE | 2020-06-01 16:25 | PCCCNOTE ---
On 06/01/20, the student, Kary Jara, provided care and completed [facility] documentation on this patient. I have reviewed the student's documentation and agree with the findings.
[2020-06-01 20:00] VITALS: BP 121/88; PULSE 98; RESP 18; TEMP 36.4; O2SAT 100
[2020-06-02 04:00] VITALS: BP 113/71; PULSE 111; RESP 20; TEMP 36.9; O2SAT 100
[2020-06-02 05:29] LABS: Hematocrit 36.6 % (37.0-47.0); Hemoglobin 11.6 g/dL (12.0-15.0); Mean Corpuscular HGB Conc 31.7 g/dl (32-36); Mean Corpuscular Hemoglobin 39.9 pg (26-34); Mean Corpuscular Volume 125.8 fl (80-100); Mean Platelet Volume 10.8 fl (7.4-10.4); Platelet Count Result 165 k/mm3 (150-375); Red Blood Count 2.91 M/mm3 (4.2-5.4); White Blood Count 10.8 K/mm3 (4.5-10.0)
[2020-06-02 05:41] LABS: Alanine Aminotransferase 64 U/L (4-35); Albumin Level 3.2 g/dL (3.5-5.1); Alkaline Phosphatase 228 U/L (38-126); Aspartate Amino Transferase 99 U/L (14-36); Bilirubin,Total 3.7 mg/dL (0.2-1.3); Blood Urea Nitrogen 3 mg/dL (7-17); Calcium 8.8 mg/dL (8.4-10.2); Carbon Dioxide 19 mmol/L (22-30); Chloride 112 mmol/L (98-107); Estimated CRCL calculation 147 ml/min; Estimated Glomerular Filt Rate > 60; Glucose 92 mg/dL (65-105); Potassium 4.1 mmol/L (3.4-5.0); Sodium 138 mmol/L (137-145)
[2020-06-02] MEDS: IBUPROFEN 600 MG TABLET PO (06:41)
[2020-06-02] MEDS: GABAPENTIN 100 MG CAPSULE 200 MG PO (09:31)
[2020-06-02] MEDS: LACTULOSE 20 GM/30 ML UDC PO (09:31)
[2020-06-02] MEDS: THIAMINE HCL 100 MG TABLET PO (09:32)
[2020-06-02] MEDS: MAGNESIUM OXIDE 400 MG TABLET PO (09:32)
[2020-06-02] MEDS: MULTIVITAMINS THERAPEUTIC TAB (*BKC) 1 TABLET PO (09:32)
[2020-06-02] MEDS: LIDOCAINE 5% PATCH 1 PATCH TRANSDERM (09:32)
[2020-06-02] MEDS: FOLIC ACID 1 MG TABLET PO (09:32)
[2020-06-02] MEDS: CYANOCOBALAMIN 500 MCG TABLET PO (09:32)
[2020-06-02] MEDS: POTASSIUM CHLORIDE 20 MEQ PACKET (FOR LIQUID) 40 MEQ PO (09:32)
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
== END 2020-06-02 13:00 | disposition home or self-care (01) | DRG 641 ==
LOC: ANHED 06:13 → ANHIMU 06:16 → ANH2MED 12:16
PROVIDERS: Family Medicine; Admitting Provider Internal Medicine; Emergency Provider Emergency Medicine; Visit Provider Family Medicine
DX: E87.6 Hypokalemia (principal); F41.9 Anxiety disorder, unspecified; E87.2 Acidosis; F10.20 Alcohol dependence, uncomplicated; N63.0 Unspecified lump in unspecified breast; R74.0 Nonspecific elevation of levels of transaminase and lactic acid dehydrogenase [LDH]
CPT/HCPCS: 36415; 36600; 70450; 70551; 71046; 72125; 72128; 72132; 73560; 74177; 76705; 80048; 80053; 80074; 80076; 80307; 81001; 82140; 82607; 82746; 82805; 82948; 83605; 83690; 83735; 84132; 84443; 84484; 85025; 85027; 85610; 85730; 87040; 87086; 93005; 93970; 95816; 96360; 96361; 96365; 96366; 96367; 96368; 96375; 96376; 97110; 97116; 97161; 97165; 97530; 99285; A9270; G0378; J2405; J2543; J3370; J3411; J3420; J3480; J7030; Q9967

== ENCOUNTER 2020-09-15 17:54 | Emergency (ER) | payer OTHER, SELFPAY ==
[2020-09-15 18:15] VITALS: BP 123/84; PULSE 99; RESP 17; TEMP 36.7; O2SAT 100
--- NOTE | 2020-09-15 19:15 | PC.NURSE ---
friend Lin [phone]
--- NOTE | 2020-09-15 19:25 | PC.NURSE ---
Assumed care of pt. report from MARIA A Stahl
--- NOTE | 2020-09-15 19:34 | ED.PSYCH ---
HPI - Psych General Chief Complaint: Psychiatric Symptoms Stated Complaint: SI/INTOXICATION Time Seen by Provider: 09/15/20 18:04 Source: patient Limitations: no limitations History of Present Illness HPI Narrative: Patient is a 40-year-old female brought in by EMS due to alcohol intoxication and possible suicidal ideation. EMS states that they found an empty bottle of vodka next to her and a friend said that she was having thoughts of suicide, patient denies this. Patient does admit to drinking a bottle of vodka but denies having any suicidal thoughts. Denies any thoughts of self injury. Denies homicidal ideations. Patient does admit to being depressed but states that she is definitely not suicidal. Related Data Allergies Allergy/AdvReac Type Severity Reaction Status Date / Time bacitracin Allergy Unknown Unknown Verified 09/15/20 18:15 benzalkonium chloride Allergy Unknown Unknown Verified 09/15/20 18:15 gramicidin D Allergy Unknown Unknown Verified 09/15/20 18:15 hydrocortisone Allergy Unknown Unknown Verified 09/15/20 18:15 polymyxin B Allergy Unknown Unknown Verified 09/15/20 18:15 BACITRACIN ZINC Allergy Unknown Unknown Uncoded 05/27/20 08:02 NEOMYCIN SULFATE Allergy Unknown Unknown Uncoded 05/27/20 08:02 POLYMYXIN B SULFATE Allergy Unknown Unknown Uncoded 05/27/20 08:02 Review of Systems Review of Systems: All systems reviewed & are unremarkable except as noted in HPI and below Constitutional: Constitutional: Denies body ache(s), Denies chills, Denies excessive sweating, Denies fatigue, Denies fever(s), Denies headache(s), Denies lethargy, Denies malaise, Denies weakness and Denies weight loss Eyes: Eyes: Denies blurry vision, Denies change in vision and Denies loss of vision ENT: Denies dizziness, Denies ear discharge, Denies headache(s), Denies lip swelling, Denies epistaxis, Denies nasal congestion, Denies neck pain, Denies throat swelling and Denies tongue swelling Cardiovascular: Cardiovascular: Denies chest pain, Denies chest pain at rest, Denies chest pain with activity, Denies diaphoresis, Denies rapid heart rate, Denies edema, Denies irregular heart rhythm, Denies lightheadedness, Denies palpitations, Denies dyspnea and Denies dyspnea on exertion Respiratory: Respiratory: Denies chest congestion, Denies cough, Denies hemoptysis, Denies dyspnea and Denies dyspnea on exertion Gastrointestinal: Gastrointestinal: Denies abdominal pain, Denies melena, Denies hematochezia, Denies diarrhea, Denies nausea, Denies vomiting and Denies hematemesis Musculoskeletal: Musculoskeletal: Denies abnormal gait, Denies deformity, Denies joint swelling, Denies limited range of motion, Denies neck pain and Denies numbness Neurologic: Denies Abnormal speech present, Denies abnormal gait, Denies confusion, Denies dizziness, Denies headache(s), Denies focal weakness, Denies loss of vision, Denies numbness, Denies Other visual disturbances, Denies Sensory deficit (Neuro) and Denies weakness Psychiatric: Psychiatric: Denies confusion, Denies depression, Denies auditory hallucinations, Denies homicidal ideation and Denies suicidal ideation Comments: Denies auditory or visual hallucinations Endocrine: Endocrine: Denies cold intolerance, Denies excessive sweating, Denies fatigue, Denies heat intolerance and Denies palpitations Hematologic/Lymphatic: Hematologic/Lymphatic: Denies easy bleeding and Denies easy bruising Allergic/Immunologic: Allergic/Immunologic: Denies lip swelling, Denies throat swelling and Denies tongue swelling [facility] Past Medical History Medical History (Updated 09/15/20 @ 22:41 by Solomon Hancock MD) Alcoholism Anxiety Seizure Family History Family History Mother Depression Family history of coronary artery disease Hypertension Grandparent Family history of malignant neoplasm of breast Carcinoma of colon Father Acute myocardial infarction Hypertensio
[2020-09-15 19:37] VITALS: BP 101/66; PULSE 97; O2SAT 98
--- NOTE | 2020-09-15 19:45 | PC.NURSE ---
Pt asked to provide urine sample. pt. states she cannot go.
[2020-09-15 19:58] LABS: Basophils Absolute Auto 0.1 K/mm3 (0.0-0.1); Basophils Percent Auto 0.7 % (0.2-1.2); Eosinophils Percent Auto 0.4 % (0-4.4); Hematocrit 44.8 % (37.0-47.0); Hemoglobin 15.5 g/dL (12.0-15.0); Immature Granulocyte Absolute 0.03 K/mm3 (0.00-0.031); Immature Granulocyte Percent A 0.4 % (0-0.5); Lymphocytes Percent Auto 38.8 % (18.3-44.2); Mean Corpuscular HGB Conc 34.6 g/dl (32-36); Mean Corpuscular Hemoglobin 30.9 pg (26-34); Mean Corpuscular Volume 89.2 fl (80-100); Mean Platelet Volume 8.6 fl (7.4-10.4); Monocytes Absolute Auto 0.3 K/mm3 (0.1-0.6); Monocytes Percent Auto 3.4 % (2.6-8.5); Neutrophils Absolute Auto 4.7 K/mm3 (1.3-6.7); Neutrophils Percent Auto 56.3 % (45.5-73.1); Platelet Count Result 280 k/mm3 (150-375); Red Blood Count 5.02 M/mm3 (4.2-5.4); Red Cell Distribution Width 14.5 % (11.5-14.5); White Blood Count 8.3 K/mm3 (4.5-10.0)
[2020-09-15 20:10] LABS: Alanine Aminotransferase 31 U/L (4-35); Albumin Level 4.6 g/dL (3.5-5.1); Alkaline Phosphatase 138 U/L (38-126); Anion Gap 18 mmol/L (8-16); Aspartate Amino Transferase 62 U/L (14-36); Bilirubin,Total 0.8 mg/dL (0.2-1.3); Blood Urea Nitrogen 4 mg/dL (7-17); Calcium 9.2 mg/dL (8.4-10.2); Carbon Dioxide 26 mmol/L (22-30); Chloride 105 mmol/L (98-107); Estimated CRCL calculation 89 ml/min; Estimated Glomerular Filt Rate > 60; Glucose 79 mg/dL (65-105); Potassium 3.5 mmol/L (3.4-5.0); Sodium 149 mmol/L (137-145)
[2020-09-15 20:17] LABS: Acetaminophen < 10 ug/mL (10-30); Salicylate < 1.0 mg/dL (2-20)
--- NOTE | 2020-09-15 20:17 | PC.NURSE ---
Pt. attempting to provide urine sample.
[2020-09-15 20:32] LABS: Ethanol 396 mg/dL (<10)
[2020-09-15 20:41] LABS: Thyroid Stimulating Hormone 0.779 uIU/mL (0.465-4.680)
[2020-09-15 20:52] LABS: Amphetamine Screen Urine Negative (Negative); Barbiturate Screen Urine Negative (Negative); Benzodiazepines Screen Urine Negative (Negative); Cannabinoid Screen Urine Negative (Negative); Cocaine Screen Urine Negative (Negative); Methadone Screen Urine Negative (Negative); Opiate Screen Urine Negative (Negative); Phencyclidine Screen Urine Negative (Negative)
[2020-09-15] MEDS: LORazepam (*CRX) 1 MG TABLET 2 MG PO (21:12)
[2020-09-15 21:15] VITALS: BP 128/83; PULSE 92; RESP 17; O2SAT 95
[2020-09-15 22:50] VITALS: BP 132/87; PULSE 88; RESP 17; O2SAT 99
== END 2020-09-15 22:50 | disposition home or self-care (01) ==
PROVIDERS: Emergency Provider Emergency Medicine; PCP Family Medicine
DX: F10.920 Alcohol use, unspecified with intoxication, uncomplicated (principal); F17.210 Nicotine dependence, cigarettes, uncomplicated; F41.9 Anxiety disorder, unspecified
CPT/HCPCS: 36415; 80053; 80307; 84443; 85025; 99283; A9270

== ENCOUNTER 2021-04-07 11:14 | Emergency (ER) | payer MEDICAID, SELFPAY ==
[2021-04-07 11:14] VITALS: BP 131/108; PULSE 95; RESP 18; TEMP 36.7; O2SAT 97
[2021-04-07 11:36] VITALS: BP 111/70; PULSE 90; RESP 17; O2SAT 100
--- NOTE | 2021-04-07 11:37 | ECG_ITS ---
Measurements Intervals [place] Rate: 82 P: 66 NC: 140 QRS: 72 QRSD: 94 T: 72 QT: 349 QTc: 408 Interpretive Statements SINUS RHYTHM BASELINE ARTIFACT- II, III, AVR, AVL, AVF, V1-V6 NORMAL ECG Electronically Signed On 04-07-2021 12:11:44 CDT by Brent Blackburn D.O.
--- NOTE | 2021-04-07 11:38 | PC.NURSE ---
Poison control notified and recommended EKG and labwork. Will call back for patient update.
[2021-04-07 12:10] LABS: Basophils Absolute Auto 0.1 K/mm3 (0.0-0.1); Basophils Percent Auto 0.7 % (0.2-1.2); Eosinophils Percent Auto 0.2 % (0-4.4); Hemoglobin 16.2 g/dL (12.0-15.0); Immature Granulocyte Absolute 0.04 K/mm3 (0.00-0.031); Immature Granulocyte Percent A 0.3 % (0-0.5); Lymphocytes Absolute Auto 2.24 K/mm3 (0.9-3.2); Lymphocytes Percent Auto 19.1 % (18.3-44.2); Mean Corpuscular HGB Conc 33.8 g/dl (32-36); Mean Corpuscular Hemoglobin 31.6 pg (26-34); Mean Corpuscular Volume 93.6 fl (80-100); Mean Platelet Volume 8.7 fl (7.4-10.4); Monocytes Absolute Auto 0.3 K/mm3 (0.1-0.6); Monocytes Percent Auto 2.4 % (2.6-8.5); Neutrophils Absolute Auto 9.1 K/mm3 (1.3-6.7); Neutrophils Percent Auto 77.3 % (45.5-73.1); Platelet Count Result 274 k/mm3 (150-375); Red Blood Count 5.13 M/mm3 (4.2-5.4); Red Cell Distribution Width 12.8 % (11.5-14.5); White Blood Count 11.7 K/mm3 (4.5-10.0)
--- NOTE | 2021-04-07 12:18 | ED.OVERDOSE ---
HPI - Overdose General Chief Complaint: Overdose <Johnathan Reynaga MD - Last Filed: 04/08/21 18:59> Stated Complaint: TOOK KLONIPIN & DRANK VODKA <Johnathan Reynaga MD - Last Filed: 04/08/21 18:59> Time Seen by Provider: 04/07/21 12:13 <Johnathan Reynaga MD - Last Filed: 04/08/21 18:59> History of Present Illness HPI Narrative: 40 yo female w/ h/o anxiety and alcohol abuse presents to the ED for an overdose. She reports that she was feeling very depressed last night and she chose to drink a large amount of vodka and take about 6 Klonopin. She is not sure what dose of Klonopin. She does not know what time she took these. She admits that she was trying to end her life. No prior attempts. No recent illness. <Johnathan Reynaga MD - Last Filed: 04/08/21 18:59> Related Data Allergies/Adverse Reactions: Allergies Allergy/AdvReac Type Severity Reaction Status Date / Time bacitracin Allergy Unknown Unknown Verified 09/15/20 18:15 benzalkonium chloride Allergy Unknown Unknown Verified 09/15/20 18:15 gramicidin D Allergy Unknown Unknown Verified 09/15/20 18:15 hydrocortisone Allergy Unknown Unknown Verified 09/15/20 18:15 polymyxin B Allergy Unknown Unknown Verified 09/15/20 18:15 BACITRACIN ZINC Allergy Unknown Unknown Uncoded 05/27/20 08:02 NEOMYCIN SULFATE Allergy Unknown Unknown Uncoded 04/07/21 12:27 POLYMYXIN B SULFATE Allergy Unknown Unknown Uncoded 05/27/20 08:02 <Johnathan Reynaga MD - Last Filed: 04/08/21 18:59> Review of Systems Review of Systems: All systems reviewed & are unremarkable except as noted in HPI and below <Johnathan Reynaga MD - Last Filed: 04/08/21 18:59> Constitutional: Constitutional: Denies chills and Denies fever(s) <Johnathan Reynaga MD - Last Filed: 04/08/21 18:59> Eyes: Eyes: Reports no additional eye complaints <Johnathan Reynaga MD - Last Filed: 04/08/21 18:59> ENT: Reports system reviewed and no additional complaints, except as documented <Johnathan Reynaga MD - Last Filed: 04/08/21 18:59> Cardiovascular: Cardiovascular: Denies chest pain <Johnathan Reynaga MD - Last Filed: 04/08/21 18:59> Respiratory: Respiratory: Denies dyspnea <Johnathan Reynaga MD - Last Filed: 04/08/21 18:59> Gastrointestinal: Gastrointestinal: Denies diarrhea, Reports nausea and Denies vomiting <Johnathan Reynaga MD - Last Filed: 04/08/21 18:59> Genitourinary: Genitourinary: Reports no additional female genitourinary complaints <Johnathan Reynaga MD - Last Filed: 04/08/21 18:59> Neurologic: Reports headache(s) and Denies weakness <Johnathan Reynaga MD - Last Filed: 04/08/21 18:59> PMFSH Past Medical History Medical History: Medical History (Updated 04/08/21 @ 18:59 by Johnathan Reynaga MD) Alcoholism Anxiety Seizure <Johnathan Reynaga MD - Last Filed: 04/08/21 18:59> Family History Family History: Family History Mother Depression Family history of coronary artery disease Hypertension Grandparent Family history of malignant neoplasm of breast Carcinoma of colon Father Acute myocardial infarction Hypertension Cerebrovascular accident <Johnathan Reynaga MD - Last Filed: 04/08/21 18:59> Social History Social History: Social History Smoking packs per day: 0.5 Smoking cigarettes per day: 10.0 Years smoked: 23 Smoking pack-years: 11.50 Smoking status: Current every day smoker Tobacco type: cigarettes Alcohol intake: current Drinks per week: 14 Substance use: never Substance use type: former substance user Gender identity (if verbalized by the patient): Female Spiritual care concerns: No <Johnathan Reynaga MD - Last Filed: 04/08/21 18:59> Exam Const: General: no acute distress and alert <Johnathan Reynaga MD - Last Filed: 04/08/21 18:59> Orientation/consciousness: pat
[2021-04-07 12:19] LABS: Acetaminophen < 10 ug/mL (10-30); Ethanol 181 mg/dL (<10); Salicylate < 1.0 mg/dL (2-20)
[2021-04-07 12:20] LABS: Alanine Aminotransferase 47 U/L (4-35); Albumin Level 5.1 g/dL (3.5-5.1); Alkaline Phosphatase 110 U/L (38-126); Anion Gap 20 mmol/L (8-16); Aspartate Amino Transferase 71 U/L (14-36); Bilirubin,Total 1.4 mg/dL (0.2-1.3); Blood Urea Nitrogen 12 mg/dL (7-17); Calcium 9.3 mg/dL (8.4-10.2); Carbon Dioxide 24 mmol/L (22-30); Chloride 93 mmol/L (98-107); Estimated CRCL calculation 77 ml/min; Estimated Glomerular Filt Rate > 60; Glucose 109 mg/dL (65-105); Potassium 3.4 mmol/L (3.4-5.0); Sodium 137 mmol/L (137-145)
[2021-04-07] MEDS: ONDANSETRON INJ 4 MG/2 ML VIAL IV PUSH (12:37)
[2021-04-07] MEDS: SODIUM CHLORIDE 0.9% IV 1,000 ML 999 ML IV CONT ×2 (12:37→14:07)
[2021-04-07 13:33] LABS: Add Urine Microscopic? YES; Appearance Urine Cloudy (Clear); Bacteria Urine Trace /hpf; Bilirubin Urine Negative (Negative); Blood Urine 1+ (Negative); Color Urine Yellow (Yellow); Glucose Urine UA Negative (Negative); Ketones Urine 1+ mg/dL (Negative); Leukocyte Esterase Ur Negative LEU/UL (Negative); Mucus Urine Few /lpf; Nitrate Urine Negative (Negative); Protein Urine 1+ mg/dL (Negative); RBC Urine 0-2 /hpf (0-2); Specific Grav Ur 1.018 (1.001-1.035); Squamous Epithelial Cell Urine Many /hpf (Few); Urobilinogen Urine Negative mg/dL (<2.0); WBC Urine 0-3 /hpf
[2021-04-07 13:42] LABS: Amphetamine Screen Urine Negative (Negative); Barbiturate Screen Urine Negative (Negative); Benzodiazepines Screen Urine Negative (Negative); Cannabinoid Screen Urine Negative (Negative); Cocaine Screen Urine Negative (Negative); Methadone Screen Urine Negative (Negative); Opiate Screen Urine Negative (Negative); Phencyclidine Screen Urine Negative (Negative)
--- NOTE | 2021-04-07 13:51 | PC.NURSE ---
Alexander from [place] poison control called. Wanted pt update
[2021-04-07 14:41] LABS: Pregnancy On Board Control Positive; Urine Pregnancy Test Negative
[2021-04-07 15:00] VITALS: BP 112/84; PULSE 97; RESP 18; O2SAT 97
--- NOTE | 2021-04-07 16:27 | PC.NURSE ---
RN into pts room. Pt tearful and states that if she goes home she will try to kill herself again since this time didnt work.
[2021-04-07 16:42] LABS: Ethanol 58 mg/dL (<10)
[2021-04-07 16:43] LABS: Anion Gap 14 mmol/L (8-16); Blood Urea Nitrogen 10 mg/dL (7-17); Calcium 8.3 mg/dL (8.4-10.2); Carbon Dioxide 25 mmol/L (22-30); Chloride 97 mmol/L (98-107); Estimated CRCL calculation 89 ml/min; Estimated Glomerular Filt Rate > 60; Glucose 117 mg/dL (65-105); Potassium 3.7 mmol/L (3.4-5.0); Sodium 136 mmol/L (137-145)
[2021-04-07 17:45] VITALS: BP 159/82; PULSE 75; RESP 18; O2SAT 100
[2021-04-07] MEDS: ACETAMINOPHEN 325 MG TABLET 650 MG PO (18:29)
--- NOTE | 2021-04-07 20:15 | PC.NURSE ---
Crisis Evaluation at this time.
[2021-04-07] MEDS: IBUPROFEN 400 MG TABLET 800 MG PO (20:50)
[2021-04-07 20:54] VITALS: BP 153/86; PULSE 84; RESP 18; O2SAT 100
--- NOTE | 2021-04-07 21:17 | PC.NURSE ---
Poison control contacted for case number. Spoke with Katie, pharmacist. Case number given #[id number].
--- NOTE | 2021-04-07 21:37 | PC.NURSE ---
Pt listed at no risk per most recent Andrew score. Pt verbalizes to balcony worker that she would harm herself if released to go home while waiting for placement. EDP aware, 1:1 sitter continues.
--- NOTE | 2021-04-07 22:01 | PC.NURSE ---
pt accepted at [facility], pending COVID results. paperwork also faxed to [facility] for them to review.
[2021-04-08 02:29] VITALS: BP 138/84; PULSE 77; RESP 18; O2SAT 99
[2021-04-08] MEDS: diphenhydrAMINE HCl CAP 25 MG CAPSULE 50 MG PO (02:49)
--- NOTE | 2021-04-08 05:29 | PC.NURSE ---
Pt requesting medications for anxiety and nausea. EDP aware.
[2021-04-08] MEDS: LORazepam (*CRX) 1 MG TABLET PO (05:33)
--- NOTE | 2021-04-08 07:10 | PC.NURSE ---
Report received from MARIA A Sosa. Awaiting placement and covid swab at this time.
[2021-04-08 07:18] VITALS: BP 149/95; PULSE 82; RESP 18; O2SAT 100
--- NOTE | 2021-04-08 07:18 | PC.NURSE ---
Pt has breakfast tray but has not started to eat it at present. Alert and oriented. 1:1 sitter remains at bedside. Call received from [facility] intake, states that because pt's screening questions [for covid] are negative, she will send the patients packet to intake staff for review.
--- NOTE | 2021-04-08 10:07 | PC.NURSE ---
Pt requesting something for anxiety . Dr. Reynaga made aware.
[2021-04-08 10:14] VITALS: BP 145/92; PULSE 117; RESP 18; O2SAT 99
--- NOTE | 2021-04-08 10:47 | PC.NURSE ---
Pt to floor via w/c accompanied by security and sitter to shower.
--- NOTE | 2021-04-08 10:51 | PC.NURSE ---
Per Rand at [facility], pt has been accepted to their facility per Dr. Chery with the dx of major depressive disorder.
--- NOTE | 2021-04-08 11:15 | PC.NURSE ---
Pt returns to department from shower.
[2021-04-08] MEDS: chlordiazePOXIDE (*CRX) 25 MG CAPSULE PO (11:45)
--- NOTE | 2021-04-08 11:59 | PC.NURSE ---
Addendum entered by Ellis Hinson RN 04/08/21 12:00: Pt's belongings collected and sent with patient at departure. Original Note: Report to Javi with [facility]. Preparing to transfer pt to [facility].
[2021-04-08 19:37] LABS: SARS-CoV-2 RNA PCR Negative
== END 2021-04-08 11:59 ==
PROVIDERS: Emergency Medicine; Emergency Provider Emergency Medicine; PCP Family Medicine
DX: T42.4X2A Poisoning by benzodiazepines, intentional self-harm, initial encounter (principal); T51.0X2A Toxic effect of ethanol, intentional self-harm, initial encounter; F10.20 Alcohol dependence, uncomplicated; Y90.6 Blood alcohol level of 120-199 mg/100 ml; Z20.822 Contact with and (suspected) exposure to COVID-19; F41.9 Anxiety disorder, unspecified; F17.210 Nicotine dependence, cigarettes, uncomplicated
CPT/HCPCS: 36415; 80048; 80053; 80307; 81001; 81025; 84443; 85025; 93005; 96361; 96374; 99285; A9270; C9803; J2405; J7030; U0003; U0005

== ENCOUNTER 2022-05-25 11:55 | Emergency (ER) | payer BC, SELFPAY ==
[2022-05-25 12:08] VITALS: BP 119/82; PULSE 86; RESP 16; TEMP 36.9; O2SAT 99
[2022-05-25 12:09] VITALS: BP 119/82; PULSE 86; RESP 16; TEMP 36.9; O2SAT 99
--- NOTE | 2022-05-25 12:23 | ED.EXTPRO ---
HPI - Extremity Problem General Chief complaint: Extremity Problem,Nontraumatic Stated complaint: Ankle and Foot Pain Time Seen by Provider: 05/25/22 12:23 Source: patient Mode of arrival: ambulatory Limitations: no limitations History of Present Illness HPI Narrative: 41 yo F presents with c/o R ankle and heel pain for several years . States her PCP left and did not get a new one. Use to take gabapentin but ran out after her PCP quit. States R ankle has swelling to it every day after working. Has had x-rays in the past that were normal. Has not seen a specialist regarding her pain. Has never had an injury to R foot or R ankle. Ambulatory with steady gait. States she is here for gabapentin refill and wants to know what is causing her swelling and pain. All systems reviewed and negative excepet as noted above. Related Data Home Medications Medication Instructions Recorded Confirmed No Home Medications 05/25/22 05/25/22 Allergies Allergy/AdvReac Type Severity Reaction Status Date / Time bacitracin Allergy Unknown Unknown Verified 05/25/22 12:09 benzalkonium chloride Allergy Unknown Unknown Verified 05/25/22 12:09 gramicidin D Allergy Unknown Unknown Verified 05/25/22 12:09 hydrocortisone Allergy Unknown Unknown Verified 05/25/22 12:09 polymyxin B Allergy Unknown Unknown Verified 05/25/22 12:09 BACITRACIN ZINC Allergy Unknown Unknown Uncoded 05/25/22 12:09 NEOMYCIN SULFATE Allergy Unknown Unknown Uncoded 05/25/22 12:09 POLYMYXIN B SULFATE Allergy Unknown Unknown Uncoded 05/25/22 12:09 Review of Systems Review of Systems: CONSTITUTIONAL: Denies fever, chills, or sweats. EYES: Denies visual changes, redness, or discharge. ENT: Denies rhinorrhea, congestion, sore throat, or otalgia. CARDIOVASCULAR: Denies chest pain, palpitations, or edema. RESPIRATORY: Denies cough or dyspnea. GASTROINTESTINAL: Denies abdominal pain, nausea, vomiting, or diarrhea. GENITOURINARY: Denies dysuria or hematuria. SKIN: Denies rash or itching. MUSCULOSKELETAL: Denies back pain, joint pain, or myalgia. Reports pain and swelling to lateral aspect right ankle, pain to right heel. NEUROLOGIC: Denies headache, numbness, or weakness. PSYCHIATRIC: Denies anxiety or depression. All other systems reviewed are negative, except as documented in HPI. PMFSH Past Medical History Medical History (Updated 05/25/22 @ 12:39 by Sigrid Al NP) Alcoholism Anxiety Seizure Family History Family History Mother Depression Family history of coronary artery disease Hypertension Grandparent Family history of malignant neoplasm of breast Carcinoma of colon Father Acute myocardial infarction Hypertension Cerebrovascular accident Social History Social History Smoking packs per day: 0.5 Smoking cigarettes per day: 10.0 Years smoked: 23 Smoking pack-years: 11.50 Smoking status: Current every day smoker Tobacco type: cigarettes Alcohol intake: current Drinks per week: 14 Substance use: never Substance use type: former substance user Gender identity (if verbalized by the patient): Female Spiritual care concerns: No Comments At time of signature, agree with nursing past medical, surgical, social and family history. There is no relevant family history pertinent to the presenting complaint. Exam Narrative: GENERAL: This is a well-nourished, well-developed patient, in no apparent distress. HEAD: normocephalic, atraumatic. EYES: PERRL. Sclera clear/white. Vision is grossly intact. EARS: External ears normal NOSE: External nose normal NECK: Neck supple, non-tender without lymphadenopathy, masses or thyromegaly. CARDIOVASCULAR: Regular rate and rhythm without murmurs, gallops, or rubs. RESPIRATORY: Clear to auscultation. Breath sounds equal bilaterally. No wheezes, rales, or rhonchi. SKIN: warm, Dry, intact
== END 2022-05-25 12:42 | disposition home or self-care (01) ==
PROVIDERS: Emergency Provider Nurse Practitioner Family
DX: M25.571 Pain in right ankle and joints of right foot (principal); M25.471 Effusion, right ankle; G89.29 Other chronic pain; M79.671 Pain in right foot; F17.210 Nicotine dependence, cigarettes, uncomplicated
CPT/HCPCS: 99212; G0463

== ENCOUNTER 2024-11-17 11:35 | Emergency (ER) | payer OTHER, SELFPAY ==
[2024-11-17 11:49] VITALS: BP 137/99; PULSE 92; RESP 16; TEMP 36.3; O2SAT 99
--- NOTE | 2024-11-17 12:05 | ED_ITS ---
HPI - Dental/Oral General Chief complaint: Dental/Oral Stated complaint: Dental Pain Time Seen by Provider: 11/17/24 12:06 Source: patient, RN notes reviewed and old records reviewed Mode of arrival: ambulatory Limitations: no limitations History of Present Illness HPI Narrative: 44-year-old female presents to the [facility] with complaints of dental pain. Pain to the right posterior lower molar area. States it has been going on for several days, [place] appointment with [facility] but cannot be seen until December 05. States yesterday the right lower jaw area with swollen. Related Data Allergies Allergy/AdvReac Type Severity Reaction Status Date / Time bacitracin Allergy Unknown Unknown Verified 11/17/24 11:57 benzalkonium chloride Allergy Unknown Unknown Verified 11/17/24 11:57 gramicidin D Allergy Unknown Unknown Verified 11/17/24 11:57 hydrocortisone Allergy Unknown Unknown Verified 11/17/24 11:57 polymyxin B Allergy Unknown Unknown Verified 11/17/24 11:57 BACITRACIN ZINC Allergy Unknown Unknown Uncoded 11/17/24 11:57 NEOMYCIN SULFATE Allergy Unknown Unknown Uncoded 11/17/24 11:57 POLYMYXIN B SULFATE Allergy Unknown Unknown Uncoded 11/17/24 11:57 Review of Systems Review of Systems: All systems reviewed & are unremarkable except as noted in HPI and below Constitutional: Constitutional: Reports no additional constitutional complaints ENT: Reports as per HPI and Reports dental pain (Right lower posterior) Cardiovascular: Cardiovascular: Reports no additional cardiovascular complaints, Denies chest pain and Denies dyspnea Respiratory: Respiratory: Reports no additional respiratory complaints, Denies chest congestion, Denies cough and Denies dyspnea Musculoskeletal: Musculoskeletal: Reports no additional musculoskeletal complaints Integumentary/Breasts: Skin/Breast: Reports system reviewed and no additional complaints, except as docu PMFSH Past Medical History Medical History Alcoholism Seizure Anxiety Surgical History Surgical History History of lumpectomy of right breast benign Family History Family History Mother Depression Family history of coronary artery disease Hypertension Grandparent Family history of malignant neoplasm of breast Carcinoma of colon Father Acute myocardial infarction Hypertension Cerebrovascular accident Social History Social History Smoking packs per day: 0.5 Smoking cigarettes per day: 10.0 Years smoked: 23 Smoking pack-years: 11.50 Smoking status: Current some day smoker Tobacco type: cigarettes Alcohol intake: never Alcohol use details: 05/01/23- 3 years quit Substance use: never Substance use type: former substance user Lack of Transportation: No Lack of Food: Never True Current Housing: I Have Housing Concerned About Future Housing: No Difficulty Paying Gas/Electric Bills: No Difficulty Paying for Meds: No Currently Unemployed: No Difficulty w/ Childcare or Family Care: No Living arrangements: with family Occupation/Education: occupation Additional occupation/education comments: alzheimer's/dementia residental MA Gender identity (if verbalized by the patient): Female Spiritual care concerns: No Comments At the time of my signature, I reviewed and agree with the nursing past medical, surgical, social, and family history. There is no relevant family history pertinent to the patient complaint. Exam Const: General: cooperative, healthy appearing, comfortable, no acute distress, well developed, alert and well nourished Nutritional Appearance: well nourished Orientation/consciousness: patient oriented x3 Limitations: no limitations HENMT: Head: normal to inspection Ears: hearing grossly normal bilaterally, external ears normal, TM's normal bilaterally, EAC's normal, mastoids normal and no periauricular adenopathy Face/Nose/Sinus: normal facial exam and face symmetric Face and sinus: normal facial exam and face symmetric Mouth: Yes Normal oral and palatal mucosa present, Yes lip normal, Yes tongue normal and Yes moist mucous membranes Teeth and gingiva: abnormal tooth and associated gingiva (Erythema posterior right change about, was x2 with partially broken through) Eyes: General: appearance normal, both eyes and all related structures Neck: Neck: normal visual inspection, full ROM, no lymphadenopathy and no meningeal signs Chest: Chest palpation & inspection: normal inspection of the chest Resp: Effort & Inspection: normal respiratory effort and able to speak in complete sentences Cardio: Rate: regular rate Skin: General skin exam: normal color and no rashes or lesions noted Neuro: General: patient oriented x3, gait normal, moves all extremities and no meningeal signs Cognition (Neuro): normal cognition Speech: normal speech Gait exam (Neuro): Normal gait present Extrem: General: normal to inspection, full ROM, capillary refill normal and normal gait Psych: Appearance: grossly normal and well kempt Mental Status: mental status grossly normal Speech and movement: Normal speech and movement present and Clear speech present Affect: normal affect Attitude: cooperative Course Course Level of Care: Express Care Visit Vital Signs Vital signs: Vital Signs Temperature 97.4 F L 11/17/24 11:49 Pulse Rate 92 11/17/24 11:49 Respiratory Rate 16 11/17/24 11:49 Blood Pressure 137/99 H 11/17/24 11:49 Pulse Oximetry 99 11/17/24 11:49 Oxygen Delivery Room Air 11/17/24 11:49 Temperature 97.4 F L 11/17/24 11:49 Pulse Rate 92 11/17/24 11:49 Respiratory Rate 16 11/17/24 11:49 Blood Pressure 137/99 H 11/17/24 11:49 Pulse Oximetry 99 11/17/24 11:49 Oxygen Delivery Room Air 11/17/24 11:49 Reviewed MDM - Dental/Oral MDM Narrative Medical decision making narrative: Patient sitting in exam room. Nontoxic, vitals stable. Patient in no acute distress Patient presents with right lower jaw erythema, swelling. Concern for infection versus inflammation due to wisdom tooth coming through. Patient reports having a a appointment with a dental provider but not till December 05 Patient appropriate for outpatient treatment with antibiotic concern for dental infection. Close follow-up. Discharge instructions reviewed with patient, as well as provided in writing per nursing staff. The instructions also include specific and strict return/GO TO THE ER as well as f/u information. All questions have been answered, and the patient deny any further questions with discharge and discharge plan. Some parts of this dictation were generated by voice recognition software and may contain typographical and/or grammatical inaccuracies. Differential Diagnosis Differential diagnosis: Likely gingival abscess, dental caries, toothache and dental abscess Critical Care Time Critical Care Time Critical Care Time: No Discharge Plan Discharge Clinical Impression: Dental infection Patient Disposition: Home, Self-Care Condition: Stable Instructions: Antibiotic Form, Dental Abscess (ED) Additional Instructions: Finish the entire course of antibiotics & use the mouthwash. After every time you eat be sure to use salt water rinses. Apply ice to face to help with pain. Take Tylenol alternating with Motrin as needed for pain. You can alternate every 4 hours You need to follow-up with a dental provider as soon as possible for further evaluation and treatment. Follow up with a Primary Care Provider (PCP) about medical needs. A PCP can help keep you healthy by preventive medicine and screening. Go to the ER for New or worsening symptoms. Patient Language: Kiswahili Prescriptions: New amoxicillin 875 mg tablet 875 mg PO Q12H Qty: 20 0RF ibuprofen 600 mg tablet 600 mg PO TID PRN (Reason: fever or pain) Qty: 30 0RF No Action gabapentin 100 mg capsule 100 mg PO QHS Qty: 90 3RF fluoxetine 20 mg capsule See Rx Instructions .ROUTE .COMPLEX Qty: 90 1RF Dose Instruction: TAKE 1 CAPSULE BY MOUTH DAILY Rx Instructions: TAKE 1 CAPSULE BY MOUTH DAILY tramadol 50 mg tablet 50 mg PO Q6H PRN (Reason: pain) Qty: 40 0RF Follow-up/Referrals: PHYSICIAN,[facility] [Primary Care Provider] - Stand Alone Forms: Work/School Release IP Time of Disposition: 12:17
== END 2024-11-17 12:20 | disposition home or self-care (01) ==
PROVIDERS: Emergency Provider Nurse Practitioner
DX: K04.7 Periapical abscess without sinus (principal); F17.210 Nicotine dependence, cigarettes, uncomplicated
CPT/HCPCS: 99213; G0463